=== PATIENT | female | born 1985 | race African-American/Black ===

== ENCOUNTER 2016-03-18 16:21 | Emergency (ER) | payer MEDICARE, MEDICAID ==
[~2016-03-18] VITALS: Ht 180.3 cm; Wt 109.1 kg
[~2016-03-18 16:21] MED LIST: AMBIEN 10MG10 MG PO; CLINDAMYCIN HC150 MG PO; HYDROCODONE/APAP; KADIAN100 MG PO; LAMICTAL200 MG PO; LEXAPRO20 MG PO; LORTAB 10/500 51 TAB PO; LORTAB 5/500 501 TAB PO; MOTRIN 800800 MG/TAB PO; MS CONTIN15 MG PO; NAPROXEN EC500 MG PO; PEPCID 20MG TAB20 MG PO; PERCOCET 325 MG1 TA2 PO; PERCOCET 5/321 UDTAB PO; PHENERGAN 25 TA25 MG PO; PHENERGAN25 MG RC; PROAIR HFA0.09 MG/AC IH; SOMA 350MG350 MG/TAB PO; SYMBICORT1 AE2 IH; ULTRAM50 MG PO; VALIUM 5MG T5 MG/TAB PO; XANAX 0.5MG0.5 MG PO; ZITHROMAX Z PA250 MG PO; ZOFRAN ODT4 MG PO
[2016-03-18 16:24] VITALS: TEMP 97.5
[2016-03-18 16:48] LABS: BASO % 0.3 % (0.0-2.0); EOS # 0.6 (0.0-0.7); EOS % 9.6 % (0-4.0); GRAN # 2.3 (1.4-6.5); GRAN % 38.2 % (42.2-75.2); HEMATOCRIT 37.8 % (37.0-47.0); HEMOGLOBIN 12.7 g/dl (12.5-16.0); LYMPH # 2.9 (1.2-3.4); LYMPH % 47.4 % (20.0-51.0); MEAN CELL VOLUME 87 fl (80.0-100.0); MEAN CORPUSCULAR HEMOGLOBIN 29 pg (27.0-31.0); MEAN CORPUSCULAR HGB CONC 34 g/dl (33.0-37.0); MEAN PLATELET VOLUME 9.8 fl (7.4-10.4); MONO # 0.3 (0.1-0.6); MONO % 4.3 % (1.7-9.3); PLATELET COUNT 285 K/mm3 (130-400); RED BLOOD COUNT 4.37 M/mm3 (4.10-5.30); REDCELL DISTRIBUTION WIDTH-CV 12.3 % (11.5-14.5); WHITE BLOOD COUNT 6.1 K/mm3 (4.8-10.8)
[2016-03-18 17:00] LABS: ADJUSTED CALCIUM 9.3 mg/dL (8.4-10.2); ALBUMIN 3.9 gm/dL (3.5-5.0); BILIRUBIN,TOTAL 0.6 mg/dL (0.0-1.0); CALCIUM 9.2 mg/dL (8.4-10.2); CREATININE, serum 0.85 mg/dL (0.52-1.25); POTASSIUM 3.8 mmol/L (3.4-5.0); TOTAL PROTEIN 7.5 gm/dL (6.4-8.2)
[2016-03-18] MEDS ORDERED: PHENERGAN25 MG RC (17:48)
[2016-03-18] MEDS ORDERED: PHENERGAN 25 TA25 MG PO (17:48)
[2016-03-18 18:13] VITALS: BP 124/76; PULSE 77
== END 2016-03-18 18:25 | disposition home or self-care (01) ==
LOC: COL.ER 16:21
PROVIDERS: Emergency Medicine
DX: R11.2 Nausea with vomiting, unspecified (principal)
CPT/HCPCS: J2060; J2270; J2405; J2550; J7030

== ENCOUNTER 2016-10-10 00:47 | Emergency (ER) | payer MEDICARE, MEDICAID ==
[~2016-10-10] VITALS: Ht 177.8 cm; Wt 104.5 kg
[2016-10-10 00:50] VITALS: TEMP 97.9
[2016-10-10] MEDS ORDERED: CEPHALEXIN250 M1 PO (01:04)
[2016-10-10] MEDS ORDERED: LAMICTAL200 MG PO (01:19)
[2016-10-10] MEDS ORDERED: ILOTYCIN5 MG/GM OP (01:21)
[2016-10-10] MEDS ORDERED: VIGAMOX 0.5% 3 M3 ML OP (01:23)
[2016-10-10 02:15] VITALS: BP 118/80; PULSE 91
== END 2016-10-10 02:15 | disposition home or self-care (01) ==
LOC: COL.ER 00:47
DX: H10.9 Unspecified conjunctivitis (principal); J45.909 Unspecified asthma, uncomplicated; F31.9 Bipolar disorder, unspecified; F41.9 Anxiety disorder, unspecified; F43.10 Post-traumatic stress disorder, unspecified; F17.200 Nicotine dependence, unspecified, uncomplicated; G89.29 Other chronic pain; M54.9 Dorsalgia, unspecified

== ENCOUNTER 2016-11-03 23:01 | Emergency (ER) | payer MEDICARE, MEDICAID ==
[~2016-11-03] VITALS: Ht 175.3 cm; Wt 105.5 kg
[~2016-11-03 23:01] MED LIST changes: +CEPHALEXIN250 M1 PO; +ILOTYCIN5 MG/GM OP; +VIGAMOX 0.5% 3 M3 ML OP
[2016-11-03 23:04] VITALS: BP 124/75; TEMP 98.9
[2016-11-04 00:48] VITALS: PULSE 92
== END 2016-11-04 00:50 | disposition home or self-care (01) ==
LOC: COL.ER 23:01
DX: H57.13 Ocular pain, bilateral (principal); F17.210 Nicotine dependence, cigarettes, uncomplicated
CPT/HCPCS: J1170

== ENCOUNTER 2016-11-20 14:23 | Emergency (ER) | payer MEDICARE, MEDICAID ==
[~2016-11-20] VITALS: Ht 175.3 cm; Wt 104.5 kg
[2016-11-20 14:32] VITALS: TEMP 97.1
[2016-11-20 16:23] LABS: BASO % 0.7 % (0.0-2.0); EOS # 0.1 (0.0-0.7); EOS % 3.4 % (0-4.0); GRAN # 2.3 (1.4-6.5); HEMATOCRIT 37.1 % (37.0-47.0); LYMPH # 1.4 (1.2-3.4); LYMPH % 35.1 % (20.0-51.0); MEAN CELL VOLUME 91 fl (80.0-100.0); MEAN CORPUSCULAR HEMOGLOBIN 29 pg (27.0-31.0); MEAN CORPUSCULAR HGB CONC 32 g/dl (33.0-37.0); MEAN PLATELET VOLUME 10.3 fl (7.4-10.4); MONO # 0.2 (0.1-0.6); MONO % 5.6 % (1.7-9.3); PLATELET COUNT 280 K/mm3 (130-400); REDCELL DISTRIBUTION WIDTH-CV 14.3 % (11.5-14.5); WHITE BLOOD COUNT 4.1 K/mm3 (4.8-10.8)
[2016-11-20 16:34] LABS: ADJUSTED CALCIUM 9.1 mg/dL (8.4-10.2); ALBUMIN 3.9 gm/dL (3.5-5.0); BILIRUBIN,TOTAL 0.3 mg/dL (0.0-1.0); CREATININE, serum 0.69 mg/dL (0.52-1.25); POTASSIUM 4.1 mmol/L (3.4-5.0); TOTAL PROTEIN 7.2 gm/dL (6.4-8.2)
[2016-11-20 17:09] LABS: PH 7 (5-8); SQUAMOUS EPITHELIAL 0-2 /hpf; URINE APPEARANCE Clear; URINE BACTERIA None Seen /hpf; URINE BILIRUBIN Negative (NEGATIVE); URINE BLOOD Negative (NEGATIVE); URINE COLOR Yellow; URINE GLUCOSE Negative (NEGATIVE); URINE KETONE Negative (NEGATIVE); URINE RBC 0-2 /hpf; URINE UROBILINOGEN Negative (NEGATIVE); URINE WBC 0-2 /hpf
[2016-11-20] MEDS ORDERED: PHENERGAN25 MG RC (18:35)
[2016-11-20 18:39] VITALS: BP 145/80; PULSE 66
== END 2016-11-20 18:49 | disposition home or self-care (01) ==
LOC: COL.ER 14:23
PROVIDERS: Emergency Medicine
DX: R51 Headache (principal); R11.2 Nausea with vomiting, unspecified; F31.9 Bipolar disorder, unspecified; F17.210 Nicotine dependence, cigarettes, uncomplicated; Z32.02 Encounter for pregnancy test, result negative
CPT/HCPCS: J0780; J1200; J1885; J3475; J7030

== ENCOUNTER 2018-10-10 21:22 | Emergency (ER) | payer MEDICARE, MEDICAID ==
[~2018-10-10] VITALS: Ht 175.3 cm; Wt 106.8 kg
[2018-10-10 21:26] VITALS: BP 137/86; TEMP 97.3
[2018-10-10 23:20] VITALS: PULSE 93
[2018-10-10] MEDS ORDERED: MS CONTIN 115 MG/TAB (23:23)
== END 2018-10-10 23:24 | disposition home or self-care (01) ==
LOC: COL.ER 21:22
DX: G43.909 Migraine, unspecified, not intractable, without status migrainosus (principal); J45.909 Unspecified asthma, uncomplicated; F31.9 Bipolar disorder, unspecified; F41.9 Anxiety disorder, unspecified; F17.210 Nicotine dependence, cigarettes, uncomplicated; F43.10 Post-traumatic stress disorder, unspecified
CPT/HCPCS: J1200; J1885; J2765; J7030

== ENCOUNTER → 2019-12-20 | Outpatient (CLI) | payer MEDICARE, MEDICAID ==
[~2019-12-20] VITALS: Ht 175.3 cm; Wt 125.7 kg
[~2019-12-20] MED LIST changes: +MS CONTIN 115 MG/TAB; +MS CONTIN100 MG PO
[2019-12-20 13:26] VITALS: BP 104/65; PULSE 107
[2019-12-20 14:31] VITALS: BP 106/41; PULSE 90
== END ==
LOC: COL.RAD 13:00
DX: M51.36 Other intervertebral disc degeneration, lumbar region (principal)
CPT/HCPCS: J3301

== ENCOUNTER → 2020-01-08 | Outpatient (CLI) | payer MEDICARE, MEDICAID ==
[~2020-01-08] VITALS: Ht 175.3 cm; Wt 124.0 kg
[2020-01-08 14:11] VITALS: BP 150/94; PULSE 95
[2020-01-08 15:15] VITALS: BP 137/98; PULSE 91
== END ==
LOC: COL.RAD 13:15
DX: M48.061 Spinal stenosis, lumbar region without neurogenic claudication (principal); M51.26 Other intervertebral disc displacement, lumbar region; M47.816 Spondylosis without myelopathy or radiculopathy, lumbar region
CPT/HCPCS: J3301

== ENCOUNTER → 2020-04-20 | Outpatient (CLI) | payer MEDICARE, MEDICAID ==
[~2020-04-20] VITALS: Ht 175.3 cm; Wt 127.2 kg
[2020-04-20 13:20] VITALS: BP 131/79; PULSE 98
[2020-04-20 15:01] VITALS: BP 146/84; PULSE 90
== END ==
LOC: COL.RAD 13:01
DX: M51.37 Other intervertebral disc degeneration, lumbosacral region (principal)
CPT/HCPCS: J3301

== ENCOUNTER 2020-10-17 09:50 | Emergency (ER) | payer MEDICARE, MEDICAID ==
[~2020-10-17] VITALS: Ht 175.3 cm; Wt 109.1 kg
[2020-10-17 10:03] VITALS: TEMP 98
[2020-10-17] MEDS ORDERED: PERCOCET 325 MG1 TA2 PO (12:24)
[2020-10-17 13:24] VITALS: BP 129/96; PULSE 105
--- NOTE | 2020-10-17 14:30 | NUR ---
SW called to ER by nurse stating that patient requested to speak to someone about a concern that she had in regards to staff. TOMMY met with patient and daughter Sydney present during conversation. Patient stated that she felt as though there were no individuals present as far as nurses and doctors that would listen to what she had to say in regards to her care. SW listened to patient and provided feedback in regards to her concern. Patient appreciated a listening ear and wanted to ensure that all staff in the hospital should have proper bedside manner when communicating with patients about their care. Patient also stated that she had not eaten or slept in the past few days due to an accident that she had been in, and worrying about other family members. SW provided information to patient in regards to the importance of eating and sleeping well to be able to properly function to complete tasks effectively. Patient agreed to information and stated that she would do better moving forward and appreciated the listening ear. Nurse came in soon after to provide patient with discharge instructions. Nothing further.
== END 2020-10-17 13:25 | disposition home or self-care (01) ==
LOC: COL.ER 09:50
DX: M51.36 Other intervertebral disc degeneration, lumbar region (principal); F31.9 Bipolar disorder, unspecified; F41.9 Anxiety disorder, unspecified; F43.10 Post-traumatic stress disorder, unspecified; Z79.899 Other long term (current) drug therapy; V48.5XXA Car driver injured in noncollision transport accident in traffic accident, initial encounter

== ENCOUNTER 2021-05-03 19:47 | Emergency (ER) | payer MEDICARE, MEDICAID ==
[~2021-05-03] VITALS: Ht 167.6 cm; Wt 118.2 kg
[2021-05-03 19:48] VITALS: TEMP 98.5
[2021-05-03 20:16] LABS: BASO % 0.5 % (0.0-2.0); EOS # 0.2 K/mm3 (0.0-0.7); EOS % 1.9 % (0.0-4.0); GRAN # 3.8 K/mm3 (1.4-6.5); GRAN % 45.2 % (42.2-75.2); HEMOGLOBIN 12.2 g/dl (12.5-16.0); LYMPH # 3.7 K/mm3 (1.2-3.4); LYMPH % 44.1 % (20.0-51.0); MEAN CELL VOLUME 86 fl (80.0-100.0); MEAN CORPUSCULAR HEMOGLOBIN 29 pg (27-31); MEAN CORPUSCULAR HGB CONC 34 g/dl (33.0-37.0); MONO # 0.7 K/mm3 (0.1-0.6); MONO % 8.1 % (1.7-9.3); PLATELET COUNT 354 K/mm3 (130-400)
[2021-05-03 20:23] LABS: HEMATOCRIT 36.3 % (37.0-47.0)
[2021-05-03 20:33] LABS: ACETAMINOPHEN < 1.0 ug/mL (10-30); ALANINE AMINOTRANSFERASE 52 U/L (0-55); ALBUMIN 3.8 gm/dL (3.5-5.0); ALCOHOL(ethanol),MEDICAL < 10 mg/dL (0-10); ALKALINE PHOSPHATASE 95 U/L (40-150); ANION GAP 10 mmol/L (7-16); AST,SGOT 34 U/L (5-34); BILIRUBIN,TOTAL 0.3 mg/dL (0.2-1.2); BLOOD UREA NITROGEN 11 mg/dL (7-19); CALCIUM 8.7 mg/dL (8.4-10.2); CARBON DIOXIDE 24 mmol/L (22-29); CHLORIDE 102 mmol/L (98-107); CREATININE, serum 1.02 mg/dL (0.57-1.11); GLUCOSE 102 mg/dL (70-99); POTASSIUM 3.4 mmol/L (3.5-4.5); SALICYLATE < 5.0 mg/dL (15.0-30.0); SODIUM 136 mmol/L (136-145); TOTAL PROTEIN 7.4 gm/dL (6.2-8.1)
[2021-05-03 21:31] LABS: COLLECTION METHOD CATHETER
[2021-05-03 21:41] LABS: MUCOUS Present (NOT PRESENT); PH 6 (5-8); SQUAMOUS EPITHELIAL 0-2 /hpf (0-10); URINE APPEARANCE Hazy (CLEAR/HAZY); URINE BACTERIA Rare /hpf (NONE SEEN); URINE BILIRUBIN Negative (NEGATIVE); URINE BLOOD 1+ (NEGATIVE); URINE COLOR Yellow (YELLOW); URINE GLUCOSE Negative (NEGATIVE); URINE KETONE Negative (NEGATIVE); URINE LEUKOCYTE ESTERASE Negative (NEGATIVE); URINE NITRATE Negative (NEGATIVE); URINE PROTEIN(semi-quant) Negative (NEGATIVE); URINE UROBILINOGEN Negative (NEGATIVE)
[2021-05-03 21:48] LABS: TRICYCLIC ANTIDEPRESS URINE NEGATIVE
[2021-05-04 05:50] VITALS: BP 144/67; PULSE 82
--- NOTE | 2021-05-04 09:56 | NUR ---
Assistant Professor Of Biology received consult in the ED for patient who was brought in after being found unresponsive at a local phone store. Patient is taking medications that are not safe to drive while taking and patient drove her children to the store after reporting taking these medications. SW made report to [facility] (intake#[id number]).
== END 2021-05-04 06:00 | disposition home or self-care (01) ==
LOC: COL.ER 19:47
PROVIDERS: Emergency Medicine
DX: R41.82 Altered mental status, unspecified (principal); M54.9 Dorsalgia, unspecified; G89.29 Other chronic pain; Z79.891 Long term (current) use of opiate analgesic
CPT/HCPCS: J1200; J2060; J7030

== ENCOUNTER 2021-06-01 22:45 | Emergency (ER) | payer MEDICARE, MEDICAID ==
[~2021-06-01] VITALS: Ht 175.3 cm; Wt 115.0 kg
[2021-06-01 22:52] VITALS: TEMP 98.2
[2021-06-01 23:34] LABS: BASO % 0.5 % (0.0-2.0); EOS # 0.2 K/mm3 (0.0-0.7); EOS % 2.5 % (0.0-4.0); GRAN # 2.6 K/mm3 (1.4-6.5); GRAN % 42.4 % (42.2-75.2); HEMATOCRIT 37.9 % (37.0-47.0); HEMOGLOBIN 12.2 g/dl (12.5-16.0); MEAN CELL VOLUME 87 fl (80.0-100.0); MEAN CORPUSCULAR HEMOGLOBIN 28 pg (27-31); MEAN CORPUSCULAR HGB CONC 32 g/dl (33.0-37.0); MEAN PLATELET VOLUME 10.6 fl (7.4-10.4); MONO # 0.3 K/mm3 (0.1-0.6); MONO % 5.4 % (1.7-9.3); PLATELET COUNT 283 K/mm3 (130-400); RED BLOOD COUNT 4.34 M/mm3 (4.10-5.30); REDCELL DISTRIBUTION WIDTH-CV 13.3 % (11.5-14.5)
[2021-06-01 23:50] LABS: ALANINE AMINOTRANSFERASE 15 U/L (0-55); ALBUMIN 3.9 gm/dL (3.5-5.0); ALKALINE PHOSPHATASE 75 U/L (40-150); ANION GAP 10 mmol/L (7-16); AST,SGOT 16 U/L (5-34); BILIRUBIN,TOTAL 0.3 mg/dL (0.2-1.2); BLOOD UREA NITROGEN 7 mg/dL (7-19); CALCIUM 8.9 mg/dL (8.4-10.2); CARBON DIOXIDE 25 mmol/L (22-29); CHLORIDE 100 mmol/L (98-107); CREATININE, serum 1.23 mg/dL (0.57-1.11); GLUCOSE 79 mg/dL (70-99); POTASSIUM 4.2 mmol/L (3.5-4.5); SODIUM 135 mmol/L (136-145); TOTAL PROTEIN 7.9 gm/dL (6.2-8.1)
[2021-06-01 23:57] LABS: TROPONIN-I < 0.010 ng/mL (0.00-0.033)
[2021-06-02 00:31] LABS: COLLECTION METHOD CLEAN CATCH; MUCOUS Present (NOT PRESENT); PH 5 (5-8); SQUAMOUS EPITHELIAL 0-2 /hpf (0-10); URINE APPEARANCE Hazy (CLEAR/HAZY); URINE BACTERIA None Seen /hpf (NONE SEEN); URINE BILIRUBIN Negative (NEGATIVE); URINE BLOOD 3+ (NEGATIVE); URINE COLOR Yellow (YELLOW); URINE GLUCOSE Negative (NEGATIVE); URINE KETONE Negative (NEGATIVE); URINE LEUKOCYTE ESTERASE Negative (NEGATIVE); URINE NITRATE Negative (NEGATIVE); URINE PROTEIN(semi-quant) Negative (NEGATIVE); URINE RBC >50 /hpf (0-2); URINE UROBILINOGEN Negative (NEGATIVE)
[2021-06-02 00:38] VITALS: BP 104/79; PULSE 90
== END 2021-06-02 00:38 | disposition home or self-care (01) ==
LOC: COL.ER 22:45
PROVIDERS: Emergency Medicine
DX: E86.0 Dehydration (principal); E87.1 Hypo-osmolality and hyponatremia; R94.4 Abnormal results of kidney function studies; F41.9 Anxiety disorder, unspecified
CPT/HCPCS: J7030

== ENCOUNTER 2021-07-12 08:32 | Emergency (ER) | payer MEDICARE, MEDICAID ==
[~2021-07-12] VITALS: Ht 175.3 cm; Wt 110.5 kg
[2021-07-12 08:33] VITALS: TEMP 96.9
[2021-07-12 09:03] LABS: BASO % 0.1 % (0.0-2.0); EOS # 0.1 K/mm3 (0.0-0.7); EOS % 1.3 % (0.0-4.0); GRAN # 4.5 K/mm3 (1.4-6.5); GRAN % 66.8 % (42.2-75.2); HEMATOCRIT 39.1 % (37.0-47.0); HEMOGLOBIN 12.7 g/dl (12.5-16.0); LYMPH # 1.8 K/mm3 (1.2-3.4); LYMPH % 26.2 % (20.0-51.0); MEAN CELL VOLUME 87 fl (80.0-100.0); MEAN CORPUSCULAR HEMOGLOBIN 28 pg (27-31); MEAN CORPUSCULAR HGB CONC 33 g/dl (33.0-37.0); MEAN PLATELET VOLUME 11.1 fl (7.4-10.4); MONO # 0.4 K/mm3 (0.1-0.6); MONO % 5.2 % (1.7-9.3); PLATELET COUNT 285 K/mm3 (130-400); REDCELL DISTRIBUTION WIDTH-CV 14.2 % (11.5-14.5)
[2021-07-12 09:37] LABS: ALBUMIN 3.7 gm/dL (3.5-5.0); BILIRUBIN,TOTAL 0.2 mg/dL (0.2-1.2); C-REACTIVE PROTEIN 0.41 mg/dL (0.00-0.50); CALCIUM 8.6 mg/dL (8.4-10.2); CREATININE, serum 1.1 mg/dL (0.57-1.11); POTASSIUM 4.5 mmol/L (3.5-4.5); TOTAL PROTEIN 7.1 gm/dL (6.2-8.1)
[2021-07-12 09:48] LABS: COLLECTION METHOD CLEAN CATCH
[2021-07-12 09:54] LABS: PH 6 (5-8); SQUAMOUS EPITHELIAL 0-2 /hpf (0-10); URINE APPEARANCE Clear (CLEAR/HAZY); URINE BACTERIA Rare /hpf (NONE SEEN); URINE BILIRUBIN Negative (NEGATIVE); URINE BLOOD Negative (NEGATIVE); URINE COLOR Straw (YELLOW); URINE GLUCOSE Negative (NEGATIVE); URINE KETONE Negative (NEGATIVE); URINE LEUKOCYTE ESTERASE Negative (NEGATIVE); URINE NITRATE Negative (NEGATIVE); URINE PROTEIN(semi-quant) Negative (NEGATIVE); URINE RBC 0-2 /hpf (0-2); URINE UROBILINOGEN Negative (NEGATIVE)
[2021-07-12] MEDS ORDERED: ZOFRAN ODT4 MG PO (10:11)
[2021-07-12 10:21] VITALS: BP 120/61; PULSE 62
== END 2021-07-12 10:25 | disposition home or self-care (01) ==
LOC: COL.ER 08:32
PROVIDERS: Family Medicine
DX: A08.4 Viral intestinal infection, unspecified (principal); Z20.822 Contact with and (suspected) exposure to COVID-19
CPT/HCPCS: J2270; J2405; J2550; J7120

== ENCOUNTER → 2021-08-31 | Outpatient (CLI) | payer MEDICARE, MEDICAID | LOC: MHCPAIN 13:35 | DX: M53.3 Sacrococcygeal disorders, not elsewhere classified (principal); M54.50 Low back pain, unspecified; M47.817 Spondylosis without myelopathy or radiculopathy, lumbosacral region | CPT/HCPCS: G0463 ==

== ENCOUNTER → 2021-09-09 | Outpatient (CLI) | payer MEDICARE, MEDICAID | LOC: MHCPAIN 09:43 | DX: M47.817 Spondylosis without myelopathy or radiculopathy, lumbosacral region (principal); M54.50 Low back pain, unspecified; M53.3 Sacrococcygeal disorders, not elsewhere classified ==

== ENCOUNTER → 2023-12-13 | Outpatient (CLI) | payer MEDICARE ==
[2005-07-15 18:22] VITALS: TEMP 99.2
== END ==
LOC: MHCPAIN 14:03
DX: M51.26 Other intervertebral disc displacement, lumbar region (principal); M47.816 Spondylosis without myelopathy or radiculopathy, lumbar region; M79.7 Fibromyalgia; M54.16 Radiculopathy, lumbar region
CPT/HCPCS: G0463